=== PATIENT | male | born 1965 | race Caucasian/White ===

== ENCOUNTER → 2016-08-03 | Outpatient (CLI) | payer BC ==
[~2016-08-03] VITALS: Ht 180.3 cm; Wt 134.7 kg
[~2016-08-03] MED LIST: B COMPLETE1 EACH PO; CIALIS20 MG PO; FLONASE ALLERG9.9 ML BOTH NARES; NORVASC5 MG PO; TAGAMET HB200 M2 PO; TYLENOL EXTRA500 MG PO; VENLAFAXINE HC150 M1 PO
== END | disposition home or self-care (01) ==
LOC: AMB 13:48
DX: Z12.11 Encounter for screening for malignant neoplasm of colon (principal); D12.4 Benign neoplasm of descending colon; D12.3 Benign neoplasm of transverse colon; K64.8 Other hemorrhoids; I10 Essential (primary) hypertension; E66.9 Obesity, unspecified; Z68.41 Body mass index [BMI] 40.0-44.9, adult; Z88.8 Allergy status to other drugs, medicaments and biological substances
CPT/HCPCS: 88305; 93005; B4087; J2250; J3010